=== PATIENT | male | born 1950 | race American Indian/Alaskan Native ===

== ENCOUNTER 2018-10-28 05:35 | Emergency (ER) | payer MEDICARE ==
--- NOTE | 2018-10-28 06:35 | Emergency Department Report ---
ED Psych HPI - General Chief Complaint: Psych Stated Complaint: MH/AMS Time Seen by Provider: 10/28/18 06:03 Source: EMS Mode of arrival: Stretcher - History of Present Illness Initial Comments: 68-year-old male with history of schizophrenia presents to the ED for psychiatric evaluation. Staci states that daughter reports patient has been taking his medications, however, patient has been agitated. States he has been playing with a wood boring machine operator inside the home, and daughter is concerned because she has young children at home. Daughter also reported that patient had some layers of clothing, and she has been trying to get him to take them off for 2 days, however patient refuses. Patient appears to be responding to internal stimuli, does not answer any of my questions. MD Complaint: other (needs mental health evaluation) -: unknown Quality: constant Improves With: none Worsens With: none Treatments Prior to Arrival: none - Related Data Previous Rx's Medication Instructions Recorded Last Taken Type Benztropine [Cogentin] 1 mg PO BID #30 tablet 11/08/17 Unknown Rx Mirtazapine [Remeron] 30 mg PO QHS #30 tablet 11/08/17 Unknown Rx hydrOXYzine pamoate [hydrOXYzine 150 mg PO QHS #30 capsule 11/08/17 Unknown Rx Pamoate] risperiDONE [RisperiDONE] 3 mg PO QHS #30 tablet 11/08/17 Unknown Rx Allergies Allergy/AdvReac Type Severity Reaction Status Date / Time No Known Allergies Allergy Unverified 10/28/18 06:00 ED Review of Systems ROS: Stated complaint: MH/AMS Other details as noted in HPI Comment: Unobtainable due to pts medical conditions (pt uncooperative with exam, does not answer any questions) ED Past Medical Hx - Past Medical History Previous Medical History?: Yes Hx Hypertension: Yes Hx CVA: Yes Hx Psychiatric Treatment: Yes (schizophrenia) Hx Asthma: Yes Hx HIV: No Additional medical history: cocaine use - Surgical History Past Surgical History?: No - Social History Smoking Status: Current Every Day Smoker - Medications Home Medications: Home Medications Medication Instructions Recorded Confirmed Last Taken Type Benztropine [Cogentin] 1 mg PO BID #30 tablet 11/08/17 Unknown Rx Mirtazapine [Remeron] 30 mg PO QHS #30 tablet 11/08/17 Unknown Rx hydrOXYzine pamoate [hydrOXYzine 150 mg PO QHS #30 capsule 11/08/17 Unknown Rx Pamoate] risperiDONE [RisperiDONE] 3 mg PO QHS #30 tablet 11/08/17 Unknown Rx ED Physical Exam - General Limitations: Altered Mental Status General appearance: alert, in no apparent distress - Head Head exam: Present: atraumatic, normocephalic - Eye Eye exam: Present: normal appearance - ENT ENT exam: Present: mucous membranes moist - Neck Neck exam: Present: normal inspection - Respiratory Respiratory exam: Present: normal lung sounds bilaterally. Absent: respiratory distress - Cardiovascular Cardiovascular Exam: Present: regular rate, normal rhythm - GI/Abdominal GI/Abdominal exam: Present: soft. Absent: distended, tenderness - Extremities Exam Extremities exam: Present: normal inspection - Neurological Exam Neurological exam: Present: alert - Psychiatric Psychiatric exam: Present: other (pt appears to be responding to internal stimuli; not answering any questions; whispering to himself) ED Course Vital Signs 10/28/18 10/28/18 10/28/18 05:55 08:17 09:30 Temperature 98.4 F 98.4 F 97.8 F Pulse Rate 92 H 76 77 Respiratory 18 16 19 Rate Blood Pressure 148/69 Blood Pressure 131/78 130/82 [Left] O2 Sat by Pulse 98 96 99 Oximetry 10/28/18 10/28/18 10/28/18 10:30 11:30 12:30 Temperature 98.3 F 98.1 F 98.1 F Pulse Rate 72 68 76 Respiratory 15 19 13 Rate Blood Pressure Blood Pressure 130/80 128/77 132/81 [Left] O2 Sat by Pulse 97 99 98 Oximetry ED Medical Decision Making - Lab Data Result diagrams: 10/28/18 06:07 10/28/18 06:07 - Medical Decision Making 68-year-old male sent to ER by daughter from home. Patient has history of schizophrenia, currently appears to be psychotic, responding to internal stimuli. Patient placed on 1013 and mental health evaluation ordered. Will dispo per psych. - Differential Diagnosis psychosis, schizophrenia Critical care attestation.: If time is entered above; I have spent that time in minutes in the direct care of this critically ill patient, excluding procedure time. ED Disposition Clinical Impression: Medical clearance for psychiatric admission, Schizophrenia Disposition: DC/TX-65 PSY HOSP/PSY UNIT Is pt being admited?: No Condition: Stable Referrals: PRIMARY CARE, [Primary Care Provider] - 3-5 Days
[2018-10-28 06:41] LABS: Hemoglobin 14.7 gm/dl (11.8-15.2); Mean Corpuscular HGB Conc 33 % (32-34); Mean Corpuscular Volume 84 fl (84-94); Platelet Count 423 K/mm3 (140-440); Red Blood Count 5.36 M/mm3 (3.65-5.03)
[2018-10-28 06:55] LABS: BUN/Creatinine Ratio 16; Blood Urea Nitrogen 16 mg/dL (9-20); Calcium 9.3 mg/dL (8.4-10.2); Hemolysis Index 6
[2018-10-28 11:51] LABS: Eosinophils % (Manual) 0 % (0.0-4.3); Platelet Estimate Consistent w Auto; RBC Morphology Normal; Total Cells Counted 100
[2018-10-28 12:39] VITALS: BP 132/81
== END 2018-10-28 12:30 ==
LOC: ED 05:35
DX: F20.9 Schizophrenia, unspecified (principal); I10 Essential (primary) hypertension; J45.909 Unspecified asthma, uncomplicated; F14.90 Cocaine use, unspecified, uncomplicated; F17.200 Nicotine dependence, unspecified, uncomplicated; Z86.73 Personal history of transient ischemic attack (TIA), and cerebral infarction without residual deficits
CPT/HCPCS: 36415; 80048; 85007; 85025; 99285; G0480; 80320

== ENCOUNTER 2019-05-01 23:41 | Inpatient (IN) | payer MEDICARE ==
[2019-05-02] MEDS ORDERED: NACL 0.9% 1000 ML 1,000 ML IV ONE (00:02)
[2019-05-02 00:27] LABS: Basophils # (Auto) 0.1 K/mm3 (0.0-0.1); Basophils % (Auto) 1.3 % (0.0-1.8); Eosinophils # (Auto) 0.1 K/mm3 (0.0-0.4); Eosinophils % (Auto) 0.9 % (0.0-4.3); Hematocrit 45.2 % (35.5-45.6); Hemoglobin 14.9 gm/dl (11.8-15.2); Lymphocytes # (Auto) 1.8 K/mm3 (1.2-5.4); Lymphocytes % (Auto) 28.9 % (13.4-35.0); Mean Corpuscular HGB Conc 33 % (32-34); Mean Corpuscular Volume 87 fl (84-94); Monocytes # (Auto) 0.4 K/mm3 (0.0-0.8); Monocytes % (Auto) 6.1 % (0.0-7.3); Platelet Count 366 K/mm3 (140-440); Red Blood Count 5.23 M/mm3 (3.65-5.03); Red Cell Distribution Width 14.5 % (13.2-15.2)
[2019-05-02 01:28] LABS: Alanine Aminotransferase 14 units/L (7-56); Albumin 4.3 g/dL (3.9-5); BUN/Creatinine Ratio 13; Blood Urea Nitrogen 13 mg/dL (9-20); Hemolysis Index 26
--- NOTE | 2019-05-02 02:31 | Cat Scan Report ---
CT head/brain wo con INDICATION / CLINICAL INFORMATION: ams. TECHNIQUE: All CT scans at this location are performed using CT dose reduction for ALARA by means of automated e xposure control. COMPARISON: 11/05/2017 FINDINGS: This study was limited technically, coronal and sagittal projections could not be provided. No intracranial hemorrhage or abnormal extra-axial fluid collection. The ventricular system and basilar cisterns are normal No findings suggesting large territorial infarction or evidence of mass effect. The visualized paranasal sinuses are clear. No osseous abnormality. IMPRESSION: 1. Negative nonenhanced head CT, no interval change. Signer Name: Wilmar Krishna MD Signed: 05/02/2019 2:26 AM Workstation Name: [id number]
[2019-05-02] MEDS ORDERED: RisperDAL PO ONE (04:45)
--- NOTE | 2019-05-02 04:45 | Emergency Department Report ---
ED Psych HPI - General Chief Complaint: Psych Stated Complaint: OFF MEDS Time Seen by Provider: 05/01/19 23:58 Source: EMS Mode of arrival: Stretcher Limitations: Altered Mental Status - History of Present Illness Initial Comments: 69-year-old -[place] male with a history of schizophrenia, brought to ED with delusions, hallucinations, visual and auditory. Patient has been without his psychiatric medications. MD Complaint: altered mental status -: Gradual - Related Data Previous Rx's Medication Instructions Recorded Last Taken Type Mirtazapine [Remeron] 30 mg PO QHS #30 tablet 11/08/17 Unknown Rx hydrOXYzine pamoate [hydrOXYzine 150 mg PO QHS #30 capsule 11/08/17 Unknown Rx Pamoate] risperiDONE [RisperiDONE] 3 mg PO QHS #30 tablet 11/08/17 Unknown Rx Allergies Allergy/AdvReac Type Severity Reaction Status Date / Time No Known Allergies Allergy Unverified 10/28/18 06:00 ED Review of Systems ROS: Stated complaint: OFF MEDS Other details as noted in HPI Comment: All other systems reviewed and negative Constitutional: denies: see HPI Eyes: denies: eye pain Genitourinary: denies: urgency Skin: denies: rash, lesions Neurological: denies: headache Psychiatric: auditory hallucinations, visual hallucinations ED Past Medical Hx - Past Medical History Previous Medical History?: Yes Hx Hypertension: Yes Hx CVA: Yes Hx Psychiatric Treatment: Yes (schizophrenia) Hx Asthma: Yes Hx HIV: No Additional medical history: cocaine use - Surgical History Past Surgical History?: No - Social History Smoking Status: Unknown if ever smoked Substance Use Type: Prescribed - Medications Home Medications: Home Medications Medication Instructions Recorded Confirmed Last Taken Type Mirtazapine [Remeron] 30 mg PO QHS #30 tablet 11/08/17 05/02/19 Unknown Rx hydrOXYzine pamoate [hydrOXYzine 150 mg PO QHS #30 capsule 11/08/17 05/02/19 Unknown Rx Pamoate] risperiDONE [RisperiDONE] 3 mg PO QHS #30 tablet 11/08/17 05/02/19 Unknown Rx ED Physical Exam - General Limitations: No Limitations, Altered Mental Status General appearance: anxious - Head Head exam: Present: atraumatic, normocephalic - Eye Eye exam: Present: normal appearance, PERRL, EOMI Pupils: Present: normal accommodation - ENT ENT exam: Present: normal exam, normal orophraynx - Neck Neck exam: Present: normal inspection - Respiratory Respiratory exam: Present: normal lung sounds bilaterally - Cardiovascular Cardiovascular Exam: Present: regular rate, normal rhythm - GI/Abdominal GI/Abdominal exam: Present: soft, normal bowel sounds - Psychiatric Psychiatric exam: Present: agitated, anxious ED Course Vital Signs 05/01/19 05/02/19 23:47 05:01 Temperature 98.5 F 98.5 F Pulse Rate 87 87 Respiratory 18 18 Rate Blood Pressure 148/100 Blood Pressure 148/100 [Right] O2 Sat by Pulse 95 95 Oximetry ED Medical Decision Making - Lab Data Result diagrams: 05/02/19 00:12 05/02/19 00:12 - Medical Decision Making Medically clear for psych placement Critical care attestation.: If time is entered above; I have spent that time in minutes in the direct care of this critically ill patient, excluding procedure time. ED Disposition Clinical Impression: Schizophrenia Qualifiers: Schizophrenia type: unspecified Qualified Code(s): F20.9 - Schizophrenia, unspecified Disposition: DC/TX-65 PSY HOSP/PSY UNIT Is pt being admited?: No Does the pt Need Aspirin: No Condition: Stable Referrals: JIN SHETH MD [Primary Care Provider] - 3-5 Days
[2019-05-02] MEDS ORDERED: KEPPRA 1,000 MG/NS 0.75% 100ML 1,000 MG/100 ML BAG IV ONE ×2 (07:14→07:15)
[2019-05-02] MEDS ORDERED: ATIVAN ONE (07:15)
[2019-05-02] MEDS ORDERED: VITAMIN B-1 100 MG, FOLVITE 1 MG, INFUVITE 10 ML in NACL 0.9% 1000 ML 1,000 ML IV ONE (08:00)
[2019-05-02 08:03] LABS: INR 1.39 (0.87-1.13); Partial Thromboplastin Time 24.3 Sec. (24.2-36.6)
[2019-05-02 08:12] LABS: Creatine Kinase MB 3.6 ng/mL (0.0-4.0)
--- NOTE | 2019-05-02 08:13 | Emergency Department Report ---
Blank Doc - Documentation Documentation: 69-year-old male previously seen by prior emergency physician. On my examinati on initially the patient does appear to have dementia and probably chronic schizophrenia. He is not agitated. He was cooperative. He was neurologically intact. However, some less than 60 minutes later the patient had a generalized seizure which I witnessed. He was given Keppra. He was reexamined. He had returned to his baseline. He was neurologically intact. He did not seem to be withdrawing from alcohol. I discussed his case with the mental health counselor. He is not seeming to meet 1013 criteria to me. Apparently he has been noncompliant with his psychiatric medication per his daughter. This should apparently be reinitiated. He states his never had a seizure before. He again does not seem to be withdrawing from alcohol. He was given a gram of Keppra. Patient has been CTU at approximately 2 AM. He had a normal CT. He said one prior normal CT as well within a year or so. I do not think it is necessary to reach CTU this patient at this time since she is returned to his baseline. Discussed with hospitalist. The patient will be admitted to the hospital service. He is entirely cooperative since my encounter.
[2019-05-02] MEDS ORDERED: ASPIRIN PO ONE (08:14)
[2019-05-02 08:29] LABS: Bacteria,Urine 1+ /HPF (Negative); Bilirubin,Urine NEG (Negative); Blood,Urine NEG (Negative); Color,Urine Yellow (Yellow); Mucus,Urine 1+ /HPF
[2019-05-02 08:36] LABS: Amphetamine Screen,Urine PRESUMPTIVE NEGATIVE; Benzodiazepines Screen,Urine PRESUMPTIVE NEGATIVE; Cannabinoid Screen,Urine PRESUMPTIVE NEGATIVE; Cocaine Screen,Urine PRESUMPTIVE NEGATIVE; Methadone Screen,Urine PRESUMPTIVE NEGATIVE; Opiate Screen,Urine PRESUMPTIVE NEGATIVE
--- NOTE | 2019-05-02 08:53 | XRay Report ---
CHEST 1 VIEW INDICATION / CLINICAL INFORMATION: hypertension. COMPARISON: None available. FINDINGS: SUPPORT DEVICES: None. HEART / MEDIASTINUM: No significant abnormality. LUNGS / PLEURA: No significant pulmonary or pleural abnormality. No pneumothorax. ADDITIONAL FINDINGS: No significant additional findings. IMPRESSION: 1. No acute findings. Signer Name: Santo Perez MD Signed: 05/02/2019 8:49 AM Workstation Name: [id number]
--- NOTE | 2019-05-02 10:08 | History and Physical Report ---
History of Present Illness Date of examination: 05/02/19 Date of admission: 05/02/19 08:13 Chief complaint: seizure History of present illness: 69-year-old -[place]aur[place] male with a history of schizophrenia, brought to ED with delusions, hallucinations, visual and auditory. Patient has been without his psychiatric medications. However, some less than 60 minutes later the patient had a generalized witnessed seizure in the ER. He was given Keppra. He was then called for admission to hospitalist service for further Mx. No family at bedside and no further details available at this time. Past History Past Medical History: hypertension, stroke Past Surgical History: Other (unknown) Social history: lives with family, other (cocaine abuse) Family history: other (unknown) Medications and Allergies Allergies Allergy/AdvReac Type Severity Reaction Status Date / Time No Known Allergies Allergy Unverified 10/28/18 06:00 Home Medications Medication Instructions Recorded Confirmed Last Taken Type Mirtazapine [Remeron] 30 mg PO QHS #30 tablet 11/08/17 05/02/19 Unknown Rx hydrOXYzine pamoate [hydrOXYzine 150 mg PO QHS #30 capsule 11/08/17 05/02/19 Unknown Rx Pamoate] risperiDONE [RisperiDONE] 3 mg PO QHS #30 tablet 11/08/17 05/02/19 Unknown Rx Active Meds: Active Medications Thiamine HCl 100 mg/ Folic Acid 1 mg/ Multivitamins/Minerals 10 ml/ Sodium Chloride 1,011.2 mls @ 250 mls/hr IV ONCE.ED ONE Stop: 05/02/19 12:02 Last Admin: 05/02/19 08:24 Dose: 250 mls/hr Documented by: Review of Systems ROS unobtainable: due to mental status Exam - Constitutional Vitals: Temp Pulse Resp BP Pulse Ox 98.1 F 78 22 99/43 99 05/02/19 08:04 05/02/19 08:04 05/02/19 08:04 05/02/19 08:04 05/02/19 08:04 General appearance: Present: well-nourished, other (confused) - EENT Eyes: Present: PERRL ENT: hearing intact, clear oral mucosa - Neck Neck: Present: supple, normal ROM - Respiratory Respiratory effort: normal Respiratory: bilateral: CTA - Cardiovascular Heart Sounds: Present: S1 & S2. Absent: rub, click - Extremities Extremities: pulses symmetrical, No edema Peripheral Pulses: within normal limits - Abdominal General gastrointestinal: Present: soft, non-tender, non-distended, normal bowel sounds - Integumentary Integumentary: Present: clear, warm, dry - Musculoskeletal Musculoskeletal: gait normal, strength equal bilaterally - Psychiatric Psychiatric: appropriate mood/affect, intact judgment & insight - Neurologic Neurologic: CNII-XII intact, moves all extremities Results - Labs CBC & Chem 7: 05/02/19 00:12 05/02/19 00:12 Labs: Abnormal lab results 05/02/19 05/02/19 05/02/19 Range/Units 00:12 00:12 00:12 RBC 5.23 H (3.65-5.03) M/mm3 PT (12.2-14.9) Sec. INR (0.87-1.13) Chloride 109.1 H (98-107) mmol/L Carbon Dioxide 21 L (22-30) mmol/L Glucose 127 H (75-100) mg/dL Ammonia (25-60) umol/L Total Creatine Kinase (55-170) units/L Salicylates < 0.3 L (2.8-20.0) mg/dL Acetaminophen (10.0-30.0) ug/mL 05/02/19 05/02/19 05/02/19 Range/Units 00:12 07:33 07:33 RBC (3.65-5.03) M/mm3 PT 16.7 H (12.2-14.9) Sec. INR 1.39 H (0.87-1.13) Chloride (98-107) mmol/L Carbon Dioxide (22-30) mmol/L Glucose (75-100) mg/dL Ammonia (25-60) umol/L Total Creatine Kinase 392 H (55-170) units/L Salicylates (2.8-20.0) mg/dL Acetaminophen < 5.0 L (10.0-30.0) ug/mL 05/02/19 Range/Units 07:33 RBC (3.65-5.03) M/mm3 PT (12.2-14.9) Sec. INR (0.87-1.13) Chloride (98-107) mmol/L Carbon Dioxide (22-30) mmol/L Glucose (75-100) mg/dL Ammonia 223.0 H (25-60) umol/L Total Creatine Kinase (55-170) units/L Salicylates (2.8-20.0) mg/dL Acetaminophen (10.0-30.0) ug/mL - Imaging and Cardiology Chest x-ray: report reviewed CT Scan - head: report reviewed Assessment and Plan Acute seizure Acute metabolic encephalopathy Schizophrenia hyperammonimenia Rhabdomyolysis caocaine abuse h/o h/o old CVA - admit to [facility] - as needed ativan for seizure, s/p one dose iv keppra - has no h/o seizure, CT head negtaive - resume home meds, psych consult - consult neurology about AED meds recommendation - place on iv fluid and lactulose - monitor ammonia and CPK level - obtain UDS, monitor BP - DVt Px, mechanical soft diet
[2019-05-02] MEDS ORDERED: ATIVAN IV PRN (10:22)
[2019-05-02] MEDS ORDERED: APRESOLINE IV PRN (10:23)
[2019-05-02] MEDS ORDERED: NORCO 5/325 PO PRN (10:23)
[2019-05-02] MEDS ORDERED: TYLENOL PO PRN (10:23)
[2019-05-02] MEDS ORDERED: ZOFRAN IV PRN (10:23)
[2019-05-02] MEDS ORDERED: CEPHULAC PO SCH (16:00)
--- NOTE | 2019-05-02 18:51 | Consultation ---
History of Present Illness - Reason for Consult Consult date: 05/02/19 Reason for consult: psychiatric evaluation - Chief Complaint Chief complaint: "I ain't gonna say something." - History of Present Psychiatric Illness 69-year-old -[place] male with a history of schizophrenia, brought to ED with delusions, hallucinations, visual and auditory. Patient has been without his psychiatric medications. However, some less than 60 minutes later the patient had a generalized witnessed seizure. He was given Keppra. He repeatedly says, "I ain't gonna say something." He states he takes 5 pills at night and one in the morning. He intermittently grabs his head and winces. He says, "I drank a beer and a water." Unable to gather additional information due to disorganized thought process. Medications and Allergies Allergies Allergy/AdvReac Type Severity Reaction Status Date / Time No Known Allergies Allergy Unverified 10/28/18 06:00 Home Medications Medication Instructions Recorded Confirmed Last Taken Type Mirtazapine [Remeron] 30 mg PO QHS #30 tablet 11/08/17 05/02/19 Unknown Rx hydrOXYzine pamoate [hydrOXYzine 150 mg PO QHS #30 capsule 11/08/17 05/02/19 Unknown Rx Pamoate] risperiDONE [RisperiDONE] 3 mg PO QHS #30 tablet 11/08/17 05/02/19 Unknown Rx Active Meds: Active Medications Acetaminophen (Tylenol) 650 mg PO Q4H PRN PRN Reason: Pain MILD(1-3)/Fever >100.5/[place] Acetaminophen/Hydrocodone Bitart ([place] 5/325) 2 each PO Q6H PRN PRN Reason: Pain, Moderate (4-6) Docusate Sodium (Colace) 100 mg PO BID [place] Enoxaparin Sodium (Lovenox) 40 mg SUB-Q QDAY@2200 [place] Famotidine (Pepcid) 10 mg PO BID [place] Hydralazine HCl (Apresoline) 5 mg IV Q30MIN PRN PRN Reason: Hypertension Hydroxyzine Pamoate (Vistaril) 150 mg PO QHS [place] Sodium Chloride (Nacl 0.9% 1000 Ml) 1,000 mls @ 100 mls/hr IV DIRECT [place] Lactulose (Cephulac) 20 gm PO Q6HR [place] Lorazepam (Ativan) 2 mg IV Q4H PRN PRN Reason: Agitation Mirtazapine (Remeron) 30 mg PO QHS [facility] Ondansetron HCl (Zofran) 4 mg IV Q8H PRN PRN Reason: N/V unrelieved by Reglan Risperidone (Risperdal) 3 mg PO QHS [facility] Mental Status Exam - Vital signs Last Vital Signs Temp 98.1 F 05/02/19 10:44 Pulse 62 05/02/19 10:44 Resp 18 05/02/19 10:44 BP 133/67 05/02/19 10:44 Pulse Ox 98 05/02/19 10:44 - Exam Narrative exam: he would turn his face away intermittently Orientation: person Affect: flat Mood: calm Thought content: paranoia Thought Process: Disorganized, Disoriented Perceptions: other (unable to assess) Speech: minimal response Concentration: distractible Motor activity: other (occasional involuntary movements of tongue ) Level of consciousness: confused Interaction: uncooperative (minimally cooperative) Results Result Diagrams: 05/02/19 00:12 05/02/19 00:12 Abnormal lab results 05/02/19 05/02/19 05/02/19 Range/Units 00:12 00:12 00:12 RBC 5.23 H (3.65-5.03) M/mm3 PT (12.2-14.9) Sec. INR (0.87-1.13) Chloride 109.1 H (98-107) mmol/L Carbon Dioxide 21 L (22-30) mmol/L Glucose 127 H (75-100) mg/dL Ammonia (25-60) umol/L Total Creatine Kinase (55-170) units/L Salicylates < 0.3 L (2.8-20.0) mg/dL Acetaminophen (10.0-30.0) ug/mL 05/02/19 05/02/19 05/02/19 Range/Units 00:12 07:33 07:33 RBC (3.65-5.03) M/mm3 PT 16.7 H (12.2-14.9) Sec. INR 1.39 H (0.87-1.13) Chloride (98-107) mmol/L Carbon Dioxide (22-30) mmol/L Glucose (75-100) mg/dL Ammonia (25-60) umol/L Total Creatine Kinase 392 H (55-170) units/L Salicylates (2.8-20.0) mg/dL Acetaminophen < 5.0 L (10.0-30.0) ug/mL 05/02/19 Range/Units 07:33 RBC (3.65-5.03) M/mm3 PT (12.2-14.9) Sec. INR (0.87-1.13) Chloride (98-107) mmol/L Carbon Dioxide (22-30) mmol/L Glucose (75-100) mg/dL Ammonia 223.0 H (25-60) umol/L Total Creatine Kinase (55-170) units/L Salicylates (2.8-20.0) mg/dL Acetaminophen (10.0-30.0) ug/mL All other labs normal. Assessment and Plan Assessment and plan: Impression: schizophrenia by history witnessed seizure activity acute metabolic encephalopathy, ammonia 223 possible tardive dyskinesia. This will need to be addressed by movement disorder specialist or outpatient psychiatrist who could prescribe and obtain meds indicated for td, [place] or Ingrezza recommendation: continue medical treatment Psych will monitor mental status daily meds ordered by hospitalist: risperdal 3mg hs (monitor ck, currently 392) vistaril (dose decreased by psychiatry; 50mg hs and will consider discontinuing due to anticholinergic effects in elderly) remeron 30mg hs dispo: will determine once medically cleared staffed with Dr. Chan
[2019-05-02] MEDS: CEPHULAC PO SCH ×2 (18:57→23:45)
[2019-05-02] MEDS: NACL 0.9% 1000 ML 1,000 ML IV SCH (18:57)
--- NOTE | 2019-05-02 19:29 | Progress Note ---
Subjective Date of service: 05/02/19 Interval history: new onset of generalized seizure the CT shows no stroke or [employer] lesion the brain has slight frontal atrophy present rec anticonvulsant meds as outlined and get EEG Thanks Objective - Vital Sign Vital Signs - 12hr 05/02/19 05/02/19 05/02/19 07:30 07:41 07:51 Temperature Pulse Rate 75 82 Respiratory 22 14 Rate Blood Pressure 94/51 99/43 94/51 Blood Pressure [Right] O2 Sat by Pulse 99 99 Oximetry 05/02/19 05/02/19 05/02/19 08:00 08:04 08:11 Temperature 98.1 F Pulse Rate 84 78 72 Respiratory 26 H 22 24 Rate Blood Pressure 117/73 99/43 Blood Pressure 99/43 [Right] O2 Sat by Pulse 99 99 100 Oximetry 05/02/19 05/02/19 05/02/19 08:21 08:31 08:41 Temperature Pulse Rate 67 64 63 Respiratory 16 11 L 13 Rate Blood Pressure 99/43 99/43 99/43 Blood Pressure [Right] O2 Sat by Pulse 99 98 100 Oximetry 05/02/19 05/02/19 05/02/19 08:51 09:00 09:11 Temperature Pulse Rate 56 L 54 L 51 L Respiratory 22 21 21 Rate Blood Pressure 99/43 113/74 117/73 Blood Pressure [Right] O2 Sat by Pulse 99 99 99 Oximetry 05/02/19 05/02/19 05/02/19 09:21 09:31 09:34 Temperature Pulse Rate 70 75 Respiratory 21 13 20 Rate Blood Pressure 117/73 117/73 Blood Pressure [Right] O2 Sat by Pulse 100 100 Oximetry 05/02/19 05/02/19 05/02/19 09:41 09:51 10:00 Temperature Pulse Rate 72 83 63 Respiratory 18 13 20 Rate Blood Pressure 117/73 117/73 182/96 Blood Pressure [Right] O2 Sat by Pulse 100 100 99 Oximetry 05/02/19 05/02/19 10:11 10:44 Temperature 98.1 F Pulse Rate 60 62 Respiratory 21 18 Rate Blood Pressure 113/74 133/67 Blood Pressure [Right] O2 Sat by Pulse 100 98 Oximetry - Laboratory Findings CBC and BMP: 05/02/19 00:12 05/02/19 00:12 Abnormal Lab Findings: Abnormal Labs 05/02/19 05/02/19 05/02/19 00:12 00:12 00:12 RBC 5.23 H PT INR Chloride 109.1 H Carbon Dioxide 21 L Glucose 127 H Ammonia Total Creatine Kinase Salicylates < 0.3 L Acetaminophen 05/02/19 05/02/19 05/02/19 00:12 07:33 07:33 RBC PT 16.7 H INR 1.39 H Chloride Carbon Dioxide Glucose Ammonia Total Creatine Kinase 392 H Salicylates Acetaminophen < 5.0 L 05/02/19 07:33 RBC PT INR Chloride Carbon Dioxide Glucose Ammonia 223.0 H Total Creatine Kinase Salicylates Acetaminophen
[2019-05-02] MEDS: PEPCID PO SCH (22:00)
[2019-05-02] MEDS ORDERED: VISTARIL PO SCH (22:00)
[2019-05-02] MEDS: VISTARIL PO SCH (22:00)
[2019-05-02] MEDS: REMERON PO SCH (22:00)
[2019-05-02] MEDS: LOVENOX SUB-Q SCH (22:01)
[2019-05-02] MEDS: COLACE PO SCH (22:01)
[2019-05-02] MEDS: RisperDAL PO SCH (22:01)
[2019-05-03] MEDS: CEPHULAC PO SCH ×2 (05:21→12:29)
--- NOTE | 2019-05-03 07:24 | Progress Note ---
Subjective Date of service: 05/03/19 Interval history: at this point seizure free but talking pure gibberish related to schizo. state... he is cooperative and has no focal findinds await EEG saturday Objective - Vital Sign Vital Signs - 12hr 05/02/19 05/02/19 05/02/19 20:11 20:28 21:34 Temperature 97.5 F L Pulse Rate 54 L 54 L Respiratory 18 18 Rate Blood Pressure 151/95 O2 Sat by Pulse 100 Oximetry 05/03/19 02:34 Temperature 98.5 F Pulse Rate 55 L Respiratory 18 Rate Blood Pressure 141/95 O2 Sat by Pulse 98 Oximetry - Laboratory Findings CBC and BMP: 05/02/19 00:12 05/02/19 00:12 Abnormal Lab Findings: Abnormal Labs 05/02/19 05/02/19 05/02/19 00:12 00:12 00:12 RBC 5.23 H PT INR Chloride 109.1 H Carbon Dioxide 21 L Glucose 127 H Ammonia Total Creatine Kinase Salicylates < 0.3 L Acetaminophen 05/02/19 05/02/19 05/02/19 00:12 07:33 07:33 RBC PT 16.7 H INR 1.39 H Chloride Carbon Dioxide Glucose Ammonia Total Creatine Kinase 392 H Salicylates Acetaminophen < 5.0 L 05/02/19 07:33 RBC PT INR Chloride Carbon Dioxide Glucose Ammonia 223.0 H Total Creatine Kinase Salicylates Acetaminophen
--- NOTE | 2019-05-03 11:26 | Progress Note ---
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 Medical records and medication list reviewed. No acute event overnight noted by the RN. Patient denies any chest pain or difficulty breathing. Patient is tolerating diet. He appears to be pleasantly confused and oriented to self only Discussed plan of care at bedside with patient. Objective - Exam Narrative Exam: General appearance: Present: well-nourished, other (confused) - EENT Eyes: Present: PERRL ENT: hearing intact, clear oral mucosa - Neck Neck: Present: supple, normal ROM - Respiratory Respiratory effort: normal Respiratory: bilateral: CTA - Cardiovascular Heart Sounds: Present: S1 & S2. Absent: rub, click - Extremities Extremities: pulses symmetrical, No edema Peripheral Pulses: within normal limits - Abdominal General gastrointestinal: Present: soft, non-tender, non-distended, normal bowel sounds - Integumentary Integumentary: Present: clear, warm, dry - Musculoskeletal Musculoskeletal: gait normal, strength equal bilaterally - Psychiatric Psychiatric: no appropriate mood/affect, no intact judgment & insight - Neurologic Neurologic: CNII-XII intact, moves all extremities - Constitutional Vitals: Vital Signs - 12hr 05/03/19 05/03/19 05/03/19 02:34 07:20 08:05 Temperature 98.5 F 98.1 F Pulse Rate 55 L 59 L Respiratory 18 18 18 Rate Blood Pressure 141/95 168/86 O2 Sat by Pulse 98 98 Oximetry - Labs CBC & Chem 7: 05/02/19 00:12 05/04/19 09:24
[2019-05-03] MEDS: KEPPRA 500 MG in D5W 100 ML IV SCH ×2 (12:12→22:38)
[2019-05-03] MEDS: PEPCID PO SCH ×2 (12:13→22:39)
[2019-05-03] MEDS: COLACE PO SCH ×2 (12:29→22:39)
--- NOTE | 2019-05-03 19:16 | Progress Note ---
Subjective - Reason for Consult Consult date: 05/03/19 Reason for consult: follow up - Chief Complaint Chief complaint: "I'm getting old." He says he is doing "bad." He participated in interview and discussed his need to find a new place to live. He says his daughter does not want him there. He reports chronic feelings that somebody is watching him. "I handle it." He denies SI/HI and denies command hallucinations. He denies difficulty with sleep or appetite. He reports a history of CVA and CO 7 years ago Mental Status Exam - Vital signs Last Vital Signs Temp 97.9 F 05/03/19 14:54 Pulse 59 L 05/03/19 14:54 Resp 18 05/03/19 14:54 BP 115/66 05/03/19 14:54 Pulse Ox 94 05/03/19 14:54 - Exam Narrative exam: Affect: flat Mood: calm Thought content: paranoia Thought Process: limited in scope Perceptions: paranoia, AVH-non command Speech: regular rate and rhythm Concentration: focused Motor activity: other (occasional involuntary movements of tongue ) Level of consciousness: alert and oriented x 3 Interaction: cooperative Assessment and Plan Impression: schizophrenia by history witnessed seizure activity acute metabolic encephalopathy, ammonia 223 r/o td continue medical treatment Psych will monitor mental status daily meds ordered by hospitalist: risperdal 3mg hs (monitor ck, currently 392) vistaril (dose decreased by psychiatry; 50mg hs and will consider discontinuing due to anticholinergic effects in elderly) remeron 30mg hs dispo: will determine once medically cleared staffed with Dr. Chan
[2019-05-03] MEDS: LOVENOX SUB-Q SCH (22:38)
[2019-05-03] MEDS: REMERON PO SCH (22:39)
[2019-05-03] MEDS: VISTARIL PO SCH (22:39)
[2019-05-03] MEDS: RisperDAL PO SCH (22:39)
[2019-05-04 07:59] VITALS: BP 122/69
[2019-05-04 10:03] LABS: BUN/Creatinine Ratio 8; Blood Urea Nitrogen 9 mg/dL (9-20); Calcium 8.7 mg/dL (8.4-10.2); Hemolysis Index 8
[2019-05-04] MEDS: COLACE PO SCH (10:16)
[2019-05-04] MEDS: PEPCID PO SCH (10:17)
[2019-05-04] MEDS: KEPPRA 500 MG in D5W 100 ML IV SCH (10:17)
[2019-05-04] MEDS: NACL 0.9% 1000 ML 1,000 ML IV SCH (10:24)
--- NOTE | 2019-05-04 13:52 | Progress Note ---
Subjective - Reason for Consult Consult date: 05/04/19 Reason for consult: Psychiatry Follow-up - Chief Complaint Chief complaint: "I'm doing okay" 69-year-old -Bul[place]ian male with a history of schizophrenia, brought to ED with delusions, hallucinations, visual and auditory. While in the ER the patient had a seizure and was admitted to the hospital. Today the patient was calm and cooperative during the assessment. He stated that he reside with his daughter Sammie. During the interview, the patient was eating his lunch without assistance. He stated that the he will follow up with is psychiatrist when discharged. He denies SI/HI's and AVH's. No indications of side effects if hie medications. Mental Status Exam - Vital signs Last Vital Signs Temp 98.0 F 05/04/19 07:22 Pulse 45 L 05/04/19 07:22 Resp 20 05/04/19 07:22 BP 122/69 05/04/19 07:22 Pulse Ox 97 05/04/19 07:22 - Exam Narrative exam: MSE: Appearance: calm, cooperative Behavior: regular eye contact Speech: regular rate and tone Mood: "okay" Affect: congruent to mood Thought Process: circumstantial Thought Content: denies SI/HI's and AVH's Motor Activity: ambulatory Cognition: A/O x3 Insight: fair Judgment: fair Assessment and Plan Impression: Schizophrenia by history. Today t he patient was calm and cooperative during the assessment. Recommendation/Plan: Continue Remeron 30 mg PO HS, Vistaril 50 mg PO HS, and Risperdal 3 mg PO HS. Discussed possible metabolic side effects of Risperdal with the patient, he verbalized understanding. Discussed possible suicidality/medication induced ifeanyi with the patient reference Remeron, he verbalized understanding. Psy sign off. Dispo: The patient can follow up with [facility] for outpatient psy services. i Will staff with Dr.S Chan
--- NOTE | 2019-05-04 13:56 | Discharge Summary ---
Providers - Providers Date of Admission: 05/02/19 08:13 Date of discharge: 05/04/19 Attending physician: CLARISSA COWAN 05/02/19 01:54 Consult to Mental Health [CONS] Stat Reason For Exam: schizophrenia, psychosis acute Place consult to:: [place] Notified:: y 05/02/19 13:26 Consult to Physician [CONS] Routine Comment: STAR Consulting Provider: ETHEL CHO Physician Instructions: CONSULT WAS CALLED TO /TELLY Reason For Exam: acute seizure Primary care physician: [facility] Hospitalization Condition: Stable Disposition: DC-01 TO HOME OR SELFCARE Time spent for discharge: 34 minutes Exam - Constitutional Vitals: Temp Pulse Resp BP Pulse Ox 98.0 F 45 L 20 122/69 97 05/04/19 07:22 05/04/19 07:22 05/04/19 07:22 05/04/19 07:22 05/04/19 07:22 Plan Follow up with: JIN SHETH MD [Referring] - 3-5 Days
--- NOTE | 2019-05-04 13:58 | Progress Note ---
Assessment and Plan Acute seizure, placed on Keppra Acute metabolic encephalopathy, due to high ammonia Schizophrenia, stable, psych following hyperammonimenia, resolved with lactulose Rhabdomyolysis, CPK trending down caocaine abuse h/o h/o old CVA - admitted to [facility] - cont as needed ativan for seizure, cont iv keppra per neuro recommendation - has no h/o seizure, CT head negtaive - resumed home meds, psych consulted - placed on iv fluid and s/p lactulose - Continue to monitor ammonia and CPK level - Normal UDS, monitor BP - DVt Px, mechanical soft diet - medically stable, discharge when cleares by psych Brief history: 69-year-old -Polish male with a history of schizophrenia, brought to ED with delusions, hallucinations, visual and auditory. Patient has been without his psychiatric medications. However, some less than 60 minutes later the patient had a generalized witnessed seizure in the ER. He was given Keppra. He was then called for admission to hospitalist service for further Mx. Head CT - no acute finding CXR - no infiltrates Subjective Date of service: 05/04/19 Interval history: Patient seen and examined. Medical records and medication list reviewed. No acute event overnight noted by the RN. Patient denies any chest pain or difficulty breathing. Patient is tolerating diet. He appears to be pleasantly confused and oriented to self only Discussed plan of care at bedside with patient. Objective - Exam Narrative Exam: General appearance: Present: well-nourished, other (confused) - EENT Eyes: Present: PERRL ENT: hearing intact, clear oral mucosa - Neck Neck: Present: supple, normal ROM - Respiratory Respiratory effort: normal Respiratory: bilateral: CTA - Cardiovascular Heart Sounds: Present: S1 & S2. Absent: rub, click - Extremities Extremities: pulses symmetrical, No edema Peripheral Pulses: within normal limits - Abdominal General gastrointestinal: Present: soft, non-tender, non-distended, normal bowel sounds - Integumentary Integumentary: Present: clear, warm, dry - Musculoskeletal Musculoskeletal: gait normal, strength equal bilaterally - Psychiatric Psychiatric: no appropriate mood/affect, no intact judgment & insight - Neurologic Neurologic: CNII-XII intact, moves all extremities - Constitutional Vitals: Vital Signs - 12hr 05/04/19 05/04/19 02:14 07:22 Temperature 98.5 F 98.0 F Pulse Rate 49 L 45 L Respiratory 20 20 Rate Blood Pressure 126/75 122/69 O2 Sat by Pulse 96 97 Oximetry - Labs CBC & Chem 7: 05/02/19 00:12 05/04/19 09:24 Labs: Abnormal lab results 05/03/19 05/04/19 Range/Units 12:48 09:24 Glucose 114 H (75-100) mg/dL Total Creatine Kinase 339 H 188 H (55-170) units/L
--- NOTE | 2019-05-04 14:03 | Discharge Summary ---
Providers - Providers Date of Admission: 05/02/19 08:13 Date of discharge: 05/04/19 Attending physician: CLARISSA COWAN 05/02/19 01:54 Consult to Mental Health [CONS] Stat Reason For Exam: schizophrenia, psychosis acute Place consult to:: [facility] Notified:: y 05/02/19 13:26 Consult to Physician [CONS] Routine Comment: STAR Consulting Provider: ETHEL CHO Physician Instructions: CONSULT WAS CALLED TO /TELLY Reason For Exam: acute seizure Primary care physician: [facility], [facility] Hospitalization Condition: Stable Pertinent studies: Head CT - no acute finding CXR - no infiltrates Hospital course: 69-year-old -Maltese male with a history of schizophrenia, brought to ED with delusions, hallucinations, visual and auditory. Patient has been without his psychiatric medications. However, some less than 60 minutes later the patient had a generalized witnessed seizure in the ER. He was given Keppra. He was then called for admission to hospitalist service for further Mx. - admitted to [facility] - Placed on as needed ativan for seizure, and iv keppra per neuro recommendation - changed to po on discharge - has no h/o seizure, CT head negtaive - resumed home meds, psych consulted - placed on iv fluid and s/p lactulose for high ammonia level - Monitored ammonia and CPK level - Normal UDS, mental status was then at baseline - was discharged home with daughter in stable condition Discharge diagnosis: Acute seizure, placed on Keppra Acute metabolic encephalopathy, due to high ammonia, resolved Schizophrenia, stable, psych following hyperammonimenia, resolved with lactulose Rhabdomyolysis, CPK trended down caocaine abuse h/o h/o old CVA Disposition: DC-01 TO HOME OR SELFCARE Time spent for discharge: 34 minutes Core Measure Documentation - Palliative Care Palliative Care/ Comfort Measures: Not Applicable - Core Measures Any of the following diagnoses?: none Exam - Physical Exam Narrative exam: General appearance: Present: well-nourished, other (confused) - EENT Eyes: Present: PERRL ENT: hearing intact, clear oral mucosa - Neck Neck: Present: supple, normal ROM - Respiratory Respiratory effort: normal Respiratory: bilateral: CTA - Cardiovascular Heart Sounds: Present: S1 & S2. Absent: rub, click - Extremities Extremities: pulses symmetrical, No edema Peripheral Pulses: within normal limits - Abdominal General gastrointestinal: Present: soft, non-tender, non-distended, normal bowel sounds - Integumentary Integumentary: Present: clear, warm, dry - Musculoskeletal Musculoskeletal: gait normal, strength equal bilaterally - Psychiatric Psychiatric: no appropriate mood/affect, no intact judgment & insight - Neurologic Neurologic: CNII-XII intact, moves all extremities - Constitutional Vitals: Temp Pulse Resp BP Pulse Ox 98.0 F 45 L 20 122/69 97 05/04/19 07:22 05/04/19 07:22 05/04/19 07:22 05/04/19 07:22 05/04/19 07:22 Plan Activity: advance as tolerated Weight Bearing Status: Weight Bear as Tolerated Diet: advance as tolerated Follow up with: JIN SHETH MD [Referring] - 3-5 Days ETHEL DEWEY MD [Staff Physician] - 7 Days Prescriptions: levETIRAcetam [Keppra TAB] 750 mg PO BID #60 tablet
== END 2019-05-04 18:20 | disposition home or self-care (01) | DRG 100 ==
LOC: ED 23:41 → 2B-ACE 05-02 08:13
PROVIDERS: ADMIT Hospitalist; ATTEND Internal Medicine
DX: G40.89 Other seizures (principal); G93.41 Metabolic encephalopathy; E72.20 Disorder of urea cycle metabolism, unspecified; M62.82 Rhabdomyolysis; F20.9 Schizophrenia, unspecified; Z86.73 Personal history of transient ischemic attack (TIA), and cerebral infarction without residual deficits
CPT/HCPCS: 36415; 70450; 71045; 80048; 80053; 80307; 80320; 81001; 82140; 82550; 82553; 82962; 83735; 83880; 84443; 85025; 85610; 85730; 87116; 93005; 93010; 93306; 95819; 96361; 96365; 96367; G0378; G0480; J1650; J1953; J2060; J3411; J7030; Q0177

== ENCOUNTER 2019-05-16 15:04 | Emergency (ER) | payer MEDICARE ==
[2019-05-16 16:16] VITALS: BP 124/72
[2019-05-16 16:36] LABS: Hematocrit 44.9 % (35.5-45.6); Hemoglobin 14.7 gm/dl (11.8-15.2); Mean Corpuscular HGB Conc 33 % (32-34); Mean Corpuscular Volume 85 fl (84-94); Platelet Count 426 K/mm3 (140-440); Red Blood Count 5.26 M/mm3 (3.65-5.03); Red Cell Distribution Width 14.1 % (13.2-15.2)
--- NOTE | 2019-05-16 16:39 | Emergency Department Report ---
ED Alcohol HPI - General Chief Complaint: Alcohol Stated Complaint: ETOH Time Seen by Provider: 05/16/19 16:05 Source: patient, old records reviewed Mode of arrival: Stretcher Limitations: No Limitations - History of Present Illness Initial Comments: 69 yo male patient was seen [place] [address]. EMS was called. Patient states he got mad at a friend, left the house, and started walking. Patient states he was trying to get to the other side of town. EMS reports patient may be intoxicated. Patient states he has had several drinks today, but is unsure "what was in them." Patient has history of schizophrenia. Has no complaints. MD Complaint: alcohol intoxication Last Drink: unknown Associated Symptoms: denies other symptoms - Related Data Previous Rx's Medication Instructions Recorded Last Taken Type Mirtazapine [Remeron] 30 mg PO QHS #30 tablet 11/08/17 Unknown Rx risperiDONE [RisperiDONE] 3 mg PO QHS #30 tablet 11/08/17 Unknown Rx levETIRAcetam [Keppra TAB] 750 mg PO BID #60 tablet 05/04/19 Unknown Rx Allergies Allergy/AdvReac Type Severity Reaction Status Date / Time No Known Allergies Allergy Unverified 10/28/18 06:00 ED Review of Systems ROS: Stated complaint: ETOH Other details as noted in HPI Comment: All other systems reviewed and negative ED Past Medical Hx - Past Medical History Previous Medical History?: Yes Hx Hypertension: Yes Hx CVA: Yes Hx Psychiatric Treatment: Yes (schizophrenia) Hx Asthma: Yes Hx HIV: No Additional medical history: cocaine use - Social History Smoking Status: Current Every Day Smoker Substance Use Type: Alcohol, Cocaine, Heroin, Marijuana, Methamphetamines - Medications Home Medications: Home Medications Medication Instructions Recorded Confirmed Last Taken Type Mirtazapine [Remeron] 30 mg PO QHS #30 tablet 11/08/17 05/02/19 Unknown Rx risperiDONE [RisperiDONE] 3 mg PO QHS #30 tablet 11/08/17 05/02/19 Unknown Rx levETIRAcetam [Keppra TAB] 750 mg PO BID #60 tablet 05/04/19 Unknown Rx ED Physical Exam - General Limitations: No Limitations General appearance: alert, in no apparent distress - Head Head exam: Present: atraumatic, normocephalic - Eye Eye exam: Present: normal appearance - ENT ENT exam: Present: mucous membranes moist - Neck Neck exam: Present: normal inspection - Respiratory Respiratory exam: Present: normal lung sounds bilaterally. Absent: respiratory distress - Cardiovascular Cardiovascular Exam: Present: regular rate, normal rhythm - GI/Abdominal GI/Abdominal exam: Present: soft. Absent: distended, tenderness - Extremities Exam Extremities exam: Present: normal inspection - Neurological Exam Neurological exam: Present: alert, oriented X3 - Psychiatric Psychiatric exam: Present: normal affect, normal mood - Skin Skin exam: Present: warm, dry, intact, normal color ED Course Vital Signs 05/16/19 16:15 Temperature 97.8 F Pulse Rate 84 Blood Pressure 124/72 [Right] - Reevaluation(s) Reevaluation #1: 05/16/19 17:10 Alcohol level is zero. Spoke w/ pt's daughter, Cecy, over the phone. States she will come to ER to get him. Reevaluation #2: 05/16/19 18:00 Daughter at bedside. States patient is at baseline. She is ok with taking pt home. States he often leaves the house like this and wanders. ED Medical Decision Making - Lab Data Result diagrams: 05/16/19 16:25 05/16/19 16:25 - Differential Diagnosis intoxication, dementia, schizophrenia Critical care attestation.: If time is entered above; I have spent that time in minutes in the direct care of this critically ill patient, excluding procedure time. ED Disposition Clinical Impression: No problem, feared complaint unfounded, Schizophrenia Disposition: DC-01 TO HOME OR SELFCARE Is pt being admited?: No Condition: Stable Referrals: JIN SHETH MD [Primary Care Provider] - 3-5 Days Time of Disposition: 18:04
[2019-05-16 17:17] LABS: Calcium 9.5 mg/dL (8.4-10.2)
[2019-05-16 17:23] LABS: Band Neutrophils # (Manual) 0.1 K/mm3; Basophils % (Manual) 0 % (0.0-1.8); Eosinophils % (Manual) 0 % (0.0-4.3); Ovalocytes Few; Platelet Estimate Consistent w Auto; Total Cells Counted 100
== END 2019-05-16 18:00 | disposition home or self-care (01) ==
LOC: ED 15:04
DX: F20.9 Schizophrenia, unspecified (principal); I10 Essential (primary) hypertension; I63.9 Cerebral infarction, unspecified; J45.909 Unspecified asthma, uncomplicated; F17.200 Nicotine dependence, unspecified, uncomplicated; F14.10 Cocaine abuse, uncomplicated; F12.10 Cannabis abuse, uncomplicated; F15.10 Other stimulant abuse, uncomplicated; Z79.899 Other long term (current) drug therapy; Z71.1 Person with feared health complaint in whom no diagnosis is made
CPT/HCPCS: 36415; 80048; 80320; 85007; 85025; G0480

== ENCOUNTER 2019-06-27 02:06 | Emergency (ER) | payer MEDICARE ==
[2019-06-27] MEDS ORDERED: ATIVAN ONE (03:16)
[2019-06-27] MEDS ORDERED: KEPPRA 1,000 MG/NS 0.75% 100ML 1,000 MG/100 ML BAG IV ONE (03:17)
[2019-06-27] MEDS ORDERED: ATIVAN IV ONE (03:17)
[2019-06-27] MEDS ORDERED: BENADRYL IM PRN (03:27)
[2019-06-27] MEDS ORDERED: HALDOL IM PRN (03:27)
--- NOTE | 2019-06-27 03:27 | Emergency Department Report ---
HPI - HPI HPI: Room 16 --> 22 The patient is a 69-year-old male presenting with a chief complaint of schizophrenia. The patient was brought in by his daughter states that the patient has been off his medication for his schizophrenia and bipolar disorder. No further history was obtained. During the interview with the patient he appeared jovial. Mid sentence and had a generalized tonic-clonic seizure lasting approximately 30 seconds and then was postictal. The patient was moved to room 22 for further management. The patient has a history of seizure disorder and takes Keppra. The patient is currently postictal Location: [See above] Duration: [See above] Quality: [See above] Severity: [See above] Timing: [See above] Context: [See above] Modifying factors: [See above] Associated signs and symptoms: [see above] <RICH MILLER - Last Filed: 06/27/19 03:22> <ADRI CLARK - Last Filed: 06/28/19 13:17> - General Chief Complaint: Psych Time Seen by Provider: 06/27/19 03:09 ED Past Medical Hx - Past Medical History Previous Medical History?: Yes Hx Hypertension: Yes Hx CVA: Yes Hx Psychiatric Treatment: Yes (schizophrenia) Hx Asthma: Yes Additional medical history: cocaine use - Surgical History Past Surgical History?: No - Family History Family history: no significant - Social History Smoking Status: Current Every Day Smoker Substance Use Type: Alcohol <RICH MILLER - Last Filed: 06/27/19 03:22> <ADRI CLARK - Last Filed: 06/28/19 13:17> - Medications Home Medications: Home Medications Medication Instructions Recorded Confirmed Last Taken Type Mirtazapine [Remeron] 30 mg PO QHS #30 tablet 11/08/17 06/27/19 Unknown Rx risperiDONE [RisperiDONE] 3 mg PO QHS #30 tablet 11/08/17 06/27/19 Unknown Rx levETIRAcetam [Keppra TAB] 750 mg PO BID #60 tablet 05/04/19 06/27/19 Unknown Rx hydrOXYzine PAMOATE [Vistaril] 150 mg PO QHS 06/27/19 06/27/19 Unknown History ED Review of Systems ROS: Stated complaint: MH EVALUATION Other details as noted in HPI Comment: Unobtainable due to pts medical conditions <RICH MILLER Melani - Last Filed: 06/27/19 03:22> ROS: Stated complaint: MH EVALUATION Other details as noted in HPI <ADRI CLARK - Last Filed: 06/28/19 13:17> Physical Exam - Physical Exam Vital Signs: Vital Signs 06/27/19 02:10 Temperature 98.5 F Pulse Rate 71 Respiratory 20 Rate Blood Pressure 171/100 O2 Sat by Pulse 97 Oximetry Physical Exam: GENERAL: The patient is well-developed well-nourished male lying on stretcher postictal. [] HEENT: Normocephalic. Atraumatic. Extraocular motions are intact. Patient has moist mucous membranes. NECK: Supple. Trachea midline CHEST/LUNGS: Clear to auscultation. There is no respiratory distress noted. HEART/CARDIOVASCULAR: Regular. There is no tachycardia. There is no gallop rub or murmur. ABDOMEN: Abdomen is soft, nontender. Patient has normal bowel sounds. There is no abdominal distention. SKIN: There is no rash. There is no edema. There is no diaphoresis. NEURO: The patient is currently postictal period just prior to seizure the patient was awake and alert with normal speech MUSCULOSKELETAL: There is no evidence of acute injury. <MICHELA MILLERKE Melani - Last Filed: 06/27/19 03:22> - Physical Exam Vital Signs: Vital Signs 06/27/19 06/27/19 06/27/19 02:10 02:26 03:59 Temperature 98.2 F 98.2 F Pulse Rate 58 L 67 Respiratory 18 18 19 Rate Blood Pressure 171/100 118/72 Blood Pressure 118/72 98/62 [Right] O2 Sat by Pulse 96 96 Oximetry 06/27/19 06/27/19 06/27/19 04:37 05:40 06:38 Temperature Pulse Rate 58 L 49 L 44 L Respiratory 20 18 12 Rate Blood Pressure Blood Pressure 104/69 120/81 123/79 [Right] O2 Sat by Pulse 98 100 98 Oximetry 06/27/19 06/27/19 06/27/19 12:34 12:46 13:00 Temperature Pulse Rate 41 L 50 L 44 L Respiratory 16 16 16 Rate Blood Pressure 112/62 95/58 101/65 Blood Pressure [Right] O2 Sat by Pulse Oximetry 06/27/19 06/27/19 06/27/19 13:16 13:30 13:46 Temperature Pulse Rate 73 51 L 73 Respiratory 13 13 17 Rate Blood Pressure 110/78 137/58 107/58 Blood Pressure [Right] O2 Sat by Pulse Oximetry 06/27/19 06/27/19 06/27/19 14:00 14:16 14:30 Temperature Pulse Rate 47 L 48 L 64 Respiratory 22 18 19 Rate Blood Pressure 102/53 101/46 93/46 Blood Pressure [Right] O2 Sat by Pulse 98 100 99 Oximetry 06/27/19 06/27/19 06/27/19 14:45 15:00 15:10 Temperature Pulse Rate 51 L 51 L 47 L Respiratory 20 21 18 Rate Blood Pressure 90/46 Blood Pressure 113/65 [Right] O2 Sat by Pulse 100 100 99 Oximetry 06/27/19 06/27/19 06/27/19 15:16 15:30 15:46 Temperature Pulse Rate 49 L 48 L 44 L Respiratory 18 22 12 Rate Blood Pressure 113/65 113/65 113/65 Blood Pressure [Right] O2 Sat by Pulse 98 99 99 Oximetry 06/27/19 06/27/19 06/27/19 16:00 16:16 16:34 Temperature Pulse Rate 46 L 46 L 44 L Respiratory 21 17 21 Rate Blood Pressure 113/65 113/65 107/65 Blood Pressure [Right] O2 Sat by Pulse 100 99 100 Oximetry 06/27/19 06/27/19 06/27/19 16:46 17:00 17:16 Temperature Pulse Rate 42 L 41 L 42 L Respiratory 17 15 15 Rate Blood Pressure 113/65 113/65 Blood Pressure [Right] O2 Sat by Pulse 99 100 100 Oximetry 06/27/19 06/27/19 06/27/19 17:30 17:46 18:00 Temperature Pulse Rate 49 L 43 L 65 Respiratory 14 20 12 Rate Blood Pressure Blood Pressure [Right] O2 Sat by Pulse 99 99 97 Oximetry 06/27/19 06/27/19 06/27/19 18:16 18:30 20:00 Temperature 97.9 F Pulse Rate 71 55 L 62 Respiratory 21 15 18 Rate Blood Pressure 105/48 119/66 Blood Pressure 93/57 [Right] O2 Sat by Pulse 99 99 Oximetry 06/28/19 06/28/19 02:22 08:00 Temperature 97.9 F 98.3 F Pulse Rate 53 L 56 L Respiratory 19 16 Rate Blood Pressure Blood Pressure 159/81 115/91 [Right] O2 Sat by Pulse 98 99 Oximetry <CLARKADRI - Last Filed: 06/28/19 13:17> ED Course Vital Signs 06/27/19 02:10 Temperature 98.5 F Pulse Rate 71 Respiratory 20 Rate Blood Pressure 171/100 O2 Sat by Pulse 97 Oximetry <LIZETH MILLERMOLIV Polo - Last Filed: 06/27/19 03:22> Vital Signs 06/27/19 06/27/19 06/27/19 02:10 02:26 03:59 Temperature 98.2 F 98.2 F Pulse Rate 58 L 67 Respiratory 18 18 19 Rate Blood Pressure 171/100 118/72 Blood Pressure 118/72 98/62 [Right] O2 Sat by Pulse 96 96 Oximetry 06/27/19 06/27/19 06/27/19 04:37 05:40 06:38 Temperature Pulse Rate 58 L 49 L 44 L Respiratory 20 18 12 Rate Blood Pressure Blood Pressure 104/69 120/81 123/79 [Right] O2 Sat by Pulse 98 100 98 Oximetry 06/27/19 06/27/19 06/27/19 12:34 12:46 13:00 Temperature Pulse Rate 41 L 50 L 44 L Respiratory 16 16 16 Rate Blood Pressure 112/62 95/58 101/65 Blood Pressure [Right] O2 Sat by Pulse Oximetry 06/27/19 06/27/19 06/27/19 13:16 13:30 13:46 Temperature Pulse Rate 73 51 L 73 Respiratory 13 13 17 Rate Blood Pressure 110/78 137/58 107/58 Blood Pressure [Right] O2 Sat by Pulse Oximetry 06/27/19 06/27/19 06/27/19 14:00 14:16 14:30 Temperature Pulse Rate 47 L 48 L 64 Respiratory 22 18 19 Rate Blood Pressure 102/53 101/46 93/46 Blood Pressure [Right] O2 Sat by Pulse 98 100 99 Oximetry 06/27/19 06/27/19 06/27/19 14:45 15:00 15:10 Temperature Pulse Rate 51 L 51 L 47 L Respiratory 20 21 18 Rate Blood Pressure 90/46 Blood Pressure 113/65 [Right] O2 Sat by Pulse 100 100 99 Oximetry 06/27/19 06/27/19 06/27/19 15:16 15:30 15:46 Temperature Pulse Rate 49 L 48 L 44 L Respiratory 18 22 12 Rate Blood Pressure 113/65 113/65 113/65 Blood Pressure [Right] O2 Sat by Pulse 98 99 99 Oximetry 06/27/19 06/27/19 06/27/19 16:00 16:16 16:34 Temperature Pulse Rate 46 L 46 L 44 L Respiratory 21 17 21 Rate Blood Pressure 113/65 113/65 107/65 Blood Pressure [Right] O2 Sat by Pulse 100 99 100 Oximetry 06/27/19 06/27/19 06/27/19 16:46 17:00 17:16 Temperature Pulse Rate 42 L 41 L 42 L Respiratory 17 15 15 Rate Blood Pressure 113/65 113/65 Blood Pressure [Right] O2 Sat by Pulse 99 100 100 Oximetry 06/27/19 06/27/19 06/27/19 17:30 17:46 18:00 Temperature Pulse Rate 49 L 43 L 65 Respiratory 14 20 12 Rate Blood Pressure Blood Pressure [Right] O2 Sat by Pulse 99 99 97 Oximetry 06/27/19 06/27/19 06/27/19 18:16 18:30 20:00 Temperature 97.9 F Pulse Rate 71 55 L 62 Respiratory 21 15 18 Rate Blood Pressure 105/48 119/66 Blood Pressure 93/57 [Right] O2 Sat by Pulse 99 99 Oximetry 06/28/19 06/28/19 02:22 08:00 Temperature 97.9 F 98.3 F Pulse Rate 53 L 56 L Respiratory 19 16 Rate Blood Pressure Blood Pressure 159/81 115/91 [Right] O2 Sat by Pulse 98 99 Oximetry <ADRI CLARK - Last Filed: 06/28/19 13:17> ED Medical Decision Making - Differential Diagnosis schizophrenia, seizure disorder <RICH MILLER - Last Filed: 06/27/19 03:22> - Lab Data Result diagrams: 06/27/19 03:40 06/27/19 03:40 - Medical Decision Making Patient is admitted to the geropsychiatric unit at this time and will be discharged. <ADRI CLARK - Last Filed: 06/28/19 13:17> Critical care attestation.: If time is entered above; I have spent that time in minutes in the direct care of this critically ill patient, excluding procedure time. <RICH MILLER - Last Filed: 06/27/19 03:22> Critical care attestation.: If time is entered above; I have spent that time in minutes in the direct care of this critically ill patient, excluding procedure time. <ADRI CLARK - Last Filed: 06/28/19 13:17> ED Disposition <RICH MILLER - Last Filed: 06/27/19 03:22> Is pt being admited?: No Does the pt Need Aspirin: No Time of Disposition: 13:17 <ADRI CLARK - Last Filed: 06/28/19 13:17> Clinical Impression: Schizophrenia Disposition: DC-01 TO HOME OR SELFCARE Condition: Stable Referrals: [facility] MD HIREN [Primary Care Provider] - 3-5 Days
[2019-06-27] MEDS ORDERED: BENADRYL ONE (03:31)
[2019-06-27] MEDS ORDERED: HALDOL ONE (03:31)
[2019-06-27 03:51] LABS: Basophils # (Auto) 0.1 K/mm3 (0.0-0.1); Eosinophils # (Auto) 0.1 K/mm3 (0.0-0.4); Eosinophils % (Auto) 1.3 % (0.0-4.3); Hematocrit 42.2 % (35.5-45.6); Hemoglobin 13.6 gm/dl (11.8-15.2); Lymphocytes # (Auto) 3.1 K/mm3 (1.2-5.4); Lymphocytes % (Auto) 44.2 % (13.4-35.0); Mean Corpuscular HGB Conc 32 % (32-34); Mean Corpuscular Volume 88 fl (84-94); Monocytes # (Auto) 0.5 K/mm3 (0.0-0.8); Monocytes % (Auto) 6.6 % (0.0-7.3); Platelet Count 398 K/mm3 (140-440); Red Blood Count 4.78 M/mm3 (3.65-5.03); Red Cell Distribution Width 16.1 % (13.2-15.2)
[2019-06-27 04:28] LABS: BUN/Creatinine Ratio 11; Blood Urea Nitrogen 12 mg/dL (9-20); Hemolysis Index 14
--- NOTE | 2019-06-27 10:37 | Cat Scan Report ---
CT head/brain wo con INDICATION: seizure with prolonged post-ictal state. TECHNIQUE: All CT scans at this location are performed using CT dose reduction for ALARA by means of automated e xposure control. COMPARISON: 05/02/2019 FINDINGS: Visualized paranasal and mastoid sinuses are clear. Mild cortical involution but no mass, hemorrhage or other acute abnormality. IMPRESSION: 1. No acute abnormalities and no change in the 7 week interval. Signer Name: Silverio Guzman MD Signed: 06/27/2019 10:32 AM Workstation Name: [id number]
--- NOTE | 2019-06-27 18:08 | Consultation ---
History of Present Illness - Reason for Consult Consult date: 06/27/19 Reason for consult: psychiatric evaluation - Chief Complaint Chief complaint: unintelligible speech - History of Present Psychiatric Illness Mr. Gottlieb is a 69-year-old male presenting with a chief complaint of schizophrenia. Per the record, [The patient was brought in by his daughter states that the patient has been off his medication for his schizophrenia and bipolar disorder. No further history was obtained. During the interview with the patient he appeared jovial. Mid sentence and had a generalized tonic-clonic seizure lasting approximately 30 seconds and then was postictal.] The patient has a history of seizure disorder and takes Keppra. He is currently on telemetry. He responded to his name and uncovered his head. His speech is uninte lligible. history of acute metabolic encephalopathy with elevated ammonia of 223 05/02/2019--see consult note for that date Mental Status Exam - Exam Narrative exam: unable to assess Assessment and Plan Assessment and plan: Impression: schizophrenia by history unable to assess mental status speech is unintelligible. witnessed seizure activity history of acute metabolic encephalopathy with elevated ammonia 05/02/2019--see consult note for that date recommendation: continue medical treatment Psych will monitor mental status daily hold meds due to mental status dispo: will determine once medically cleared will staff with Dr. Chan Medications and Allergies Allergies Allergy/AdvReac Type Severity Reaction Status Date / Time No Known Allergies Allergy Unverified 10/28/18 06:00 Home Medications Medication Instructions Recorded Confirmed Last Taken Type Mirtazapine [Remeron] 30 mg PO QHS #30 tablet 11/08/17 06/27/19 Unknown Rx risperiDONE [RisperiDONE] 3 mg PO QHS #30 tablet 11/08/17 06/27/19 Unknown Rx levETIRAcetam [Keppra TAB] 750 mg PO BID #60 tablet 05/04/19 06/27/19 Unknown Rx hydrOXYzine PAMOATE [Vistaril] 150 mg PO QHS 06/27/19 06/27/19 Unknown History Active Meds: Active Medications Diphenhydramine HCl (Benadryl) 50 mg IM Q6H PRN PRN Reason: Agitation Last Admin: 06/27/19 03:42 Dose: 50 mg Documented by: Haloperidol Lactate (Haldol) 10 mg IM Q8H PRN PRN Reason: Agitation Last Admin: 06/27/19 03:42 Dose: 10 mg Documented by: Mental Status Exam - Vital signs Last Vital Signs Temp 98.2 F 06/27/19 02:26 Pulse 44 L 06/27/19 16:34 Resp 21 06/27/19 16:34 BP 107/65 06/27/19 16:34 Pulse Ox 100 06/27/19 16:34 Results Result Diagrams: 06/27/19 03:40 06/27/19 03:40 Abnormal lab results 06/27/19 06/27/19 06/27/19 Range/Units 03:40 03:40 03:40 RDW 16.1 H (13.2-15.2) % Lymph % (Auto) 44.2 H (13.4-35.0) % Baso % (Auto) 2.0 H (0.0-1.8) % Potassium 3.4 L (3.6-5.0) mmol/L Carbon Dioxide 14 L (22-30) mmol/L Glucose 110 H (75-100) mg/dL Salicylates < 0.3 L (2.8-20.0) mg/dL Acetaminophen (10.0-30.0) ug/mL 06/27/19 Range/Units 03:40 RDW (13.2-15.2) % Lymph % (Auto) (13.4-35.0) % Baso % (Auto) (0.0-1.8) % Potassium (3.6-5.0) mmol/L Carbon Dioxide (22-30) mmol/L Glucose (75-100) mg/dL Salicylates (2.8-20.0) mg/dL Acetaminophen < 5.0 L (10.0-30.0) ug/mL All other labs normal.
[2019-06-27 18:37] LABS: Bilirubin,Urine NEG (Negative); Blood,Urine NEG (Negative); Color,Urine Yellow (Yellow); Mucus,Urine FEW /HPF; Protein,Urine <15 mg/dL mg/dL (Negative)
[2019-06-27 18:47] LABS: Amphetamine Screen,Urine PRESUMPTIVE NEGATIVE; Benzodiazepines Screen,Urine PRESUMPTIVE NEGATIVE; Cannabinoid Screen,Urine PRESUMPTIVE NEGATIVE; Cocaine Screen,Urine PRESUMPTIVE NEGATIVE; Methadone Screen,Urine PRESUMPTIVE NEGATIVE; Opiate Screen,Urine PRESUMPTIVE NEGATIVE
[2019-06-27 19:28] LABS: Alanine Aminotransferase 24 units/L (7-56); Albumin 4.2 g/dL (3.9-5)
[2019-06-27 19:42] LABS: Bilirubin,Direct < 0.2 mg/dL (0-0.2)
[2019-06-28] MEDS ORDERED: KEPPRA PO SCH (10:00)
[2019-06-28 13:33] VITALS: BP 111/50
== END 2019-06-28 13:33 | disposition home or self-care (01) ==
LOC: ED 02:06
DX: F20.9 Schizophrenia, unspecified (principal); F31.9 Bipolar disorder, unspecified; I10 Essential (primary) hypertension; J45.909 Unspecified asthma, uncomplicated; I25.2 Old myocardial infarction; F14.10 Cocaine abuse, uncomplicated; F17.200 Nicotine dependence, unspecified, uncomplicated
CPT/HCPCS: 36415; 70450; 80048; 80076; 80307; 81001; 82140; 83735; 85025; 96365; 96372; 96375; 99285; J1200; J1630; J1953; J2060; 80320; 90472; G0480

== ENCOUNTER 2019-06-28 11:48 | Inpatient (IN) | payer MEDICARE ==
[2019-06-28] MEDS ORDERED: HALDOL IM PRN (12:13)
[2019-06-28] MEDS ORDERED: ATIVAN IM PRN (12:14)
[2019-06-28 15:21] LABS: Chol/HDL Ratio 1.7 %
[2019-06-28] MEDS: HABITROL TD SCH (18:13)
[2019-06-28] MEDS: VISTARIL PO SCH (21:39)
[2019-06-28] MEDS: KEPPRA PO SCH (21:39)
[2019-06-28] MEDS: RisperDAL PO SCH (21:40)
[2019-06-28] MEDS: REMERON PO SCH (21:40)
[2019-06-28] MEDS ORDERED: NON-FORMULARY (Levetiracetam [Keppra Tab] 750 MG) PO SCH (22:00)
[2019-06-29] MEDS: KEPPRA PO SCH ×2 (11:54→21:20)
[2019-06-29] MEDS: HABITROL TD SCH (11:55)
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
[2019-06-29] MEDS: REMERON PO SCH (21:20)
[2019-06-29] MEDS: RisperDAL PO SCH (21:20)
[2019-06-29] MEDS: VISTARIL PO SCH (21:21)
--- NOTE | 2019-06-30 09:23 | Progress Note ---
Subjective Date of service: 06/30/19 Principal diagnosis: Schizophrenia Subjective Comment: The patient is psychotic, paranoid, disorganized and unable to care for himself. He is compliant with medications and denies side effects. He denies SI/HI/AVH MSE Orientation: place, person Affect: agitated Mood: congruent with affect Thought content: paranoia Thought Process: Disorganized Perceptions: none Speech: incoherent Concentration: focused Motor activity: agitated Level of consciousness: alert Memory: Intact Interaction: cooperative Objective - Criteria for Continued Treatment Criteria for Continued Treatment: Improving Level of Functioning, Confronting Denial of Illness, Improving Emotional/Socia - Objective Observation Participation Level: Moderate Assessment and Plan - Patient Problems (1) Schizophrenia Current Visit: No Status: Acute Plan to address problem: Patient will be admitted for inpatient psychiatric evaluation, medication adjustment and close monitoring The patient's behavior, mood, sleep and appetite will be closely monitored. Patient will be enrolled in individual and group therapeutic sessions and encouraged to attend. Patient will be provided with a safe and structured environment. Patient's physical health needs will be addressed by the Hospitalist. Social Assessment will be completed and the Rn Psychiatric will work with patient and family to ensure a suitable and safe disposition Medication adjustment will be made as clinically indicated The patient agreed on the treatment plan, understood the risk, benefit, alternative treatment, potential consequence of no treatment, and gave informed consent. Medications & Allergies - Medications Allergies/Adverse Reactions: Allergies No Known Allergies Allergy (Unverified 10/28/18 06:00) Home Medications: Home Medications Medication Instructions Recorded Confirmed Last Taken Type Mirtazapine [Remeron] 30 mg PO QHS #30 tablet 11/08/17 06/28/19 Unknown Rx risperiDONE [RisperiDONE] 3 mg PO QHS #30 tablet 11/08/17 06/28/19 Unknown Rx levETIRAcetam [Keppra TAB] 750 mg PO BID #60 tablet 05/04/19 06/28/19 Unknown Rx hydrOXYzine PAMOATE [Vistaril] 150 mg PO QHS 06/27/19 06/28/19 Unknown History Active Medications: Generic Name Dose Route Start Last Admin Trade Name Freq PRN Reason Stop Dose Admin Haloperidol Lactate 5 mg 06/28/19 12:13 Haldol IM Q6H PRN Agitation Hydroxyzine Pamoate 50 mg 06/28/19 22:00 06/29/19 21:21 Vistaril PO 50 mg QHS CHEVY Administration Levetiracetam 750 mg 06/28/19 22:00 06/29/19 21:20 Keppra PO 750 mg BID CHEVY Administration Lorazepam 2 mg 06/28/19 12:14 Ativan IM Q6H PRN Agitation Mirtazapine 30 mg 06/28/19 22:00 06/29/19 21:20 Remeron PO 30 mg QHS CHEVY Administration Nicotine 7 mg 06/28/19 18:00 06/29/19 11:55 Habitrol TD 7 mg QDAY CHEVY Administration Risperidone 3 mg 06/28/19 22:00 06/29/19 21:20 Risperdal PO 3 mg QHS CHEVY Administration
[2019-06-30] MEDS: KEPPRA PO SCH ×2 (10:05→22:01)
[2019-06-30] MEDS: HABITROL TD SCH (10:06)
[2019-06-30] MEDS: VISTARIL PO SCH (22:02)
[2019-06-30] MEDS: REMERON PO SCH (22:02)
[2019-06-30] MEDS: RisperDAL PO SCH (22:02)
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
[2019-07-01] MEDS: HABITROL TD SCH (09:36)
[2019-07-01] MEDS: KEPPRA PO SCH ×2 (09:36→21:50)
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
[2019-07-01] MEDS: RisperDAL PO SCH (21:50)
[2019-07-01] MEDS: REMERON PO SCH (21:50)
[2019-07-01] MEDS: VISTARIL PO SCH (21:50)
--- NOTE | 2019-07-02 09:03 | Progress Note ---
Subjective Date of service: 07/02/19 Principal diagnosis: Schizophrenia Subjective Comment: The patient wants Tylenol for his shoulder. He continues to be psychotic, paranoid, disorganized and unable to care for himself. He is compliant with medications and denies side effects. He denies SI/HI/AVH MSE Orientation: place, person Affect: agitated Mood: congruent with affect Thought content: paranoia Thought Process: Disorganized Perceptions: none Speech: coherent Concentration: focused Motor activity: Normal Level of consciousness: alert Memory: Intact Interaction: cooperative Objective - Criteria for Continued Treatment Criteria for Continued Treatment: Improving Level of Functioning, Stablizing Level of Functioning, Improving Emotional/Socia - Objective Observation Participation Level: Moderate Assessment and Plan - Patient Problems (1) Schizophrenia Current Visit: No Status: Acute Plan to address problem: Patient will be admitted for inpatient psychiatric evaluation, medication adjustment and close monitoring The patient's behavior, mood, sleep and appetite will be closely monitored. Patient will be enrolled in individual and group therapeutic sessions and encouraged to attend. Patient will be provided with a safe and structured environment. Patient's physical health needs will be addressed by the Hospitalist. Social Assessment will be completed and the Recreation Therapy Aide will work with patient and family to ensure a suitable and safe disposition Medication adjustment will be made as clinically indicated Will continue Risperidone 2 mg bid The patient agreed on the treatment plan, understood the risk, benefit, alternative treatment, potential consequence of no treatment, and gave informed consent. Medications & Allergies - Medications Allergies/Adverse Reactions: Allergies No Known Allergies Allergy (Unverified 10/28/18 06:00) Home Medications: Home Medications Medication Instructions Recorded Confirmed Last Taken Type Mirtazapine [Remeron] 30 mg PO QHS #30 tablet 11/08/17 06/28/19 Unknown Rx risperiDONE [RisperiDONE] 3 mg PO QHS #30 tablet 11/08/17 06/28/19 Unknown Rx levETIRAcetam [Keppra TAB] 750 mg PO BID #60 tablet 05/04/19 06/28/19 Unknown Rx hydrOXYzine PAMOATE [Vistaril] 150 mg PO QHS 06/27/19 06/28/19 Unknown History Active Medications: Generic Name Dose Route Start Last Admin Trade Name Freq PRN Reason Stop Dose Admin Acetaminophen 650 mg 07/02/19 09:00 Tylenol PO Q6H PRN Pain, Mild (1-3) Haloperidol Lactate 5 mg 06/28/19 12:13 Haldol IM Q6H PRN Agitation Hydroxyzine Pamoate 50 mg 06/28/19 22:00 07/01/19 21:50 Vistaril PO 50 mg QHS CHEVY Administration Levetiracetam 750 mg 06/28/19 22:00 07/01/19 21:50 Keppra PO 750 mg BID CHEVY Administration Lorazepam 2 mg 06/28/19 12:14 Ativan IM Q6H PRN Agitation Mirtazapine 30 mg 06/28/19 22:00 07/01/19 21:50 Remeron PO 30 mg QHS CHEVY Administration Nicotine 7 mg 06/28/19 18:00 07/01/19 09:36 Habitrol TD 7 mg QDAY CHEVY Administration Risperidone 3 mg 06/28/19 22:00 07/01/19 21:50 Risperdal PO 3 mg QHS CHEVY Administration
[2019-07-02] MEDS: TYLENOL PO PRN (09:20)
[2019-07-02] MEDS: KEPPRA PO SCH ×2 (09:20→21:18)
[2019-07-02] MEDS: HABITROL TD SCH (09:21)
[2019-07-02] MEDS: RisperDAL PO SCH ×2 (10:33→21:19)
[2019-07-02] MEDS: REMERON PO SCH (21:18)
[2019-07-02] MEDS: VISTARIL PO SCH (21:19)
[2019-07-03] MEDS: RisperDAL PO SCH ×2 (09:02→21:08)
[2019-07-03] MEDS: KEPPRA PO SCH ×2 (09:02→21:08)
[2019-07-03] MEDS: HABITROL TD SCH (09:02)
[2019-07-03] MEDS: REMERON PO SCH (21:07)
[2019-07-03] MEDS: VISTARIL PO SCH (21:07)
[2019-07-04] MEDS: KEPPRA PO SCH ×2 (10:22→21:06)
[2019-07-04] MEDS: HABITROL TD SCH (10:23)
[2019-07-04] MEDS: RisperDAL PO SCH ×2 (10:23→21:07)
[2019-07-04] MEDS: REMERON PO SCH (21:06)
[2019-07-04] MEDS: VISTARIL PO SCH (21:07)
[2019-07-04] MEDS: TYLENOL PO PRN (23:49)
[2019-07-05] MEDS: ATIVAN PO PRN ×2 (05:02→21:10)
[2019-07-05] MEDS: HALDOL PO PRN ×2 (05:02→21:09)
[2019-07-05] MEDS ORDERED: ATIVAN ONE (05:04)
[2019-07-05] MEDS: TYLENOL PO PRN (05:35)
--- NOTE | 2019-07-05 07:59 | Progress Note ---
Subjective Date of service: 07/03/19 Principal diagnosis: Schizophrenia Subjective Comment: The patient is improving. He is still psychotic, paranoid but less disorganized and more able to care for himself. He is compliant with medications and denies side effects. He denies SI/HI/AVH MSE Orientation: place, person Affect: agitated Mood: congruent with affect Thought content: paranoia Thought Process: Disorganized Perceptions: none Speech: coherent Concentration: focused Motor activity: Normal Level of consciousness: alert Memory: Intact Interaction: cooperative Objective - Criteria for Continued Treatment Criteria for Continued Treatment: Improving Level of Functioning, Stablizing Level of Functioning, Improving Emotional/Socia - Objective Observation Participation Level: Moderate Assessment and Plan - Patient Problems (1) Schizophrenia Current Visit: No Status: Acute Plan to address problem: Patient will be admitted for inpatient psychiatric evaluation, medication adjustment and close monitoring The patient's behavior, mood, sleep and appetite will be closely monitored. Patient will be enrolled in individual and group therapeutic sessions and encouraged to attend. Patient will be provided with a safe and structured environment. Patient's physical health needs will be addressed by the Hospitalist. Social Assessment will be completed and the Battery Wrecker Operator will work with patient and family to ensure a suitable and safe disposition Medication adjustment will be made as clinically indicated Will continue Risperidone 2 mg bid The patient agreed on the treatment plan, understood the risk, benefit, alternative treatment, potential consequence of no treatment, and gave informed consent. Medications & Allergies - Medications Allergies/Adverse Reactions: Allergies No Known Allergies Allergy (Unverified 10/28/18 06:00) Home Medications: Home Medications Medication Instructions Recorded Confirmed Last Taken Type Mirtazapine [Remeron] 30 mg PO QHS #30 tablet 11/08/17 06/28/19 Unknown Rx risperiDONE [RisperiDONE] 3 mg PO QHS #30 tablet 11/08/17 06/28/19 Unknown Rx levETIRAcetam [Keppra TAB] 750 mg PO BID #60 tablet 05/04/19 06/28/19 Unknown Rx hydrOXYzine PAMOATE [Vistaril] 150 mg PO QHS 06/27/19 06/28/19 Unknown History Active Medications: Generic Name Dose Route Start Last Admin Trade Name Freq PRN Reason Stop Dose Admin Acetaminophen 650 mg 07/02/19 09:00 07/05/19 05:35 Tylenol PO 650 mg Q6H PRN Administration Pain, Mild (1-3) Haloperidol 5 mg 07/05/19 04:45 07/05/19 05:02 Haldol PO 5 mg Q6H PRN Administration Agitation Haloperidol Lactate 5 mg 06/28/19 12:13 Haldol IM Q6H PRN Agitation Hydroxyzine Pamoate 50 mg 06/28/19 22:00 07/04/19 21:07 Vistaril PO 50 mg QHS CHEVY Administration Levetiracetam 750 mg 06/28/19 22:00 07/04/19 21:06 Keppra PO 750 mg BID CHEVY Administration Lorazepam 2 mg 06/28/19 12:14 Ativan IM Q6H PRN Agitation Lorazepam 2 mg 07/05/19 04:46 07/05/19 05:02 Ativan PO 2 mg Q6H PRN Administration Agitation Mirtazapine 30 mg 06/28/19 22:00 07/04/19 21:06 Remeron PO 30 mg QHS CHEVY Administration Nicotine 7 mg 06/28/19 18:00 07/04/19 10:23 Habitrol TD 7 mg QDAY CHEVY Administration Risperidone 2 mg 07/02/19 10:00 07/04/19 21:07 Risperdal PO 2 mg BID CHEVY Administration
--- NOTE | 2019-07-05 08:03 | Progress Note ---
Subjective Date of service: 07/04/19 Principal diagnosis: Schizophrenia Subjective Comment: The patient continues to improve. He is still psychotic, paranoid but calm, pleasant, interactive, less disorganized and more able to care for himself. He is compliant with medications and denies side effects. He denies SI/HI/AVH MSE Orientation: place, person Affect: Calm Mood: congruent with affect Thought content: paranoia Thought Process: Linear Perceptions: none Speech: coherent Concentration: focused Motor activity: Normal Level of consciousness: alert Memory: Intact Interaction: cooperative Objective - Criteria for Continued Treatment Criteria for Continued Treatment: Improving Level of Functioning, Stablizing Level of Functioning, Improving Emotional/Socia - Objective Observation Participation Level: Moderate Assessment and Plan - Patient Problems (1) Schizophrenia Current Visit: No Status: Acute Plan to address problem: Patient will be admitted for inpatient psychiatric evaluation, medication adjustment and close monitoring The patient's behavior, mood, sleep and appetite will be closely monitored. Patient will be enrolled in individual and group therapeutic sessions and encouraged to attend. Patient will be provided with a safe and structured environment. Patient's physical health needs will be addressed by the Hospitalist. Social Assessment will be completed and the Insurance Verification Representative will work with patient and family to ensure a suitable and safe disposition Medication adjustment will be made as clinically indicated Will continue Risperidone 2 mg bid The patient agreed on the treatment plan, understood the risk, benefit, alternative treatment, potential consequence of no treatment, and gave informed consent.
[2019-07-05] MEDS: HABITROL TD SCH (12:14)
[2019-07-05] MEDS: KEPPRA PO SCH ×2 (12:14→21:08)
[2019-07-05] MEDS: RisperDAL PO SCH ×2 (12:17→21:09)
[2019-07-05] MEDS: VISTARIL PO SCH (21:09)
[2019-07-05] MEDS: REMERON PO SCH (21:09)
--- NOTE | 2019-07-06 01:19 | Progress Note ---
Subjective Date of service: 07/05/19 Principal diagnosis: Schizophrenia Subjective Comment: The patient is compliant with medications, calm and pleasant. He is less disorganized and more able to care for himself. Unkempt and wearing multiple layers of clothes this morning. Eats and sleeps well. He is compliant with medications and denies side effects. He denies SI/HI/AVH MSE Orientation: place, person Affect: Calm Mood: congruent with affect Thought content: paranoia Thought Process: Linear Perceptions: none Speech: coherent Concentration: focused Motor activity: Normal Level of consciousness: alert Memory: Intact Interaction: cooperative Objective - Criteria for Continued Treatment Criteria for Continued Treatment: Improving Level of Functioning, Reducing Isolative Behaviors, Stablizing Level of Functioning, Improving Emotional/Socia, Decreasing Frequency of Hospitalization - Objective Observation Participation Level: Moderate Assessment and Plan - Patient Problems (1) Schizophrenia Current Visit: No Status: Acute Plan to address problem: Patient will be admitted for inpatient psychiatric evaluation, medication adjustment and close monitoring The patient's behavior, mood, sleep and appetite will be closely monitored. Patient will be enrolled in individual and group therapeutic sessions and encouraged to attend. Patient will be provided with a safe and structured environment. Patient's physical health needs will be addressed by the Hospitalist. Social Assessment will be completed and the Cable Layer will work with patient and family to ensure a suitable and safe disposition Medication adjustment will be made as clinically indicated Will continue Risperidone 2 mg bid The patient agreed on the treatment plan, understood the risk, benefit, alternative treatment, potential consequence of no treatment, and gave informed consent. Medications & Allergies - Medications Allergies/Adverse Reactions: Allergies No Known Allergies Allergy (Unverified 10/28/18 06:00) Home Medications: Home Medications Medication Instructions Recorded Confirmed Last Taken Type Mirtazapine [Remeron] 30 mg PO QHS #30 tablet 11/08/17 06/28/19 Unknown Rx risperiDONE [RisperiDONE] 3 mg PO QHS #30 tablet 11/08/17 06/28/19 Unknown Rx levETIRAcetam [Keppra TAB] 750 mg PO BID #60 tablet 05/04/19 06/28/19 Unknown Rx hydrOXYzine PAMOATE [Vistaril] 150 mg PO QHS 06/27/19 06/28/19 Unknown History Active Medications: Generic Name Dose Route Start Last Admin Trade Name Freq PRN Reason Stop Dose Admin Acetaminophen 650 mg 07/02/19 09:00 07/05/19 05:35 Tylenol PO 650 mg Q6H PRN Administration Pain, Mild (1-3) Haloperidol 5 mg 07/05/19 04:45 07/05/19 21:09 Haldol PO 5 mg Q6H PRN Administration Agitation Haloperidol Lactate 5 mg 06/28/19 12:13 Haldol IM Q6H PRN Agitation Hydroxyzine Pamoate 50 mg 06/28/19 22:00 07/05/19 21:09 Vistaril PO 50 mg QHS CHEVY Administration Levetiracetam 750 mg 06/28/19 22:00 07/05/19 21:08 Keppra PO 750 mg BID CHEVY Administration Lorazepam 2 mg 06/28/19 12:14 Ativan IM Q6H PRN Agitation Lorazepam 2 mg 07/05/19 04:46 07/05/19 21:10 Ativan PO 2 mg Q6H PRN Administration Agitation Mirtazapine 30 mg 06/28/19 22:00 07/05/19 21:09 Remeron PO 30 mg QHS CHEVY Administration Nicotine 7 mg 06/28/19 18:00 07/05/19 12:14 Habitrol TD 7 mg QDAY CHEVY Administration Risperidone 2 mg 07/02/19 10:00 07/05/19 21:09 Risperdal PO 2 mg BID CHEVY Administration
[2019-07-06 03:47] VITALS: BP 126/55
--- NOTE | 2019-07-06 09:29 | Discharge Summary ---
Providers - Providers Date of Admission: 06/28/19 11:54 Date of discharge: 07/06/19 Attending physician: ELIANA GALVEZ MD 06/30/19 04:33 Consult Geriatric-Psych [CONS] Routine Consulting Provider: DARLING MORROW Reason For Exam: H&P Medical Mgmt [facility] Reason for admission: non-compliance, disorganized behavior, inability to care for self and paran Condition: Good Disposition: DC-01 TO HOME OR SELFCARE Allergies/Adverse Reactions: Allergies No Known Allergies Allergy (Unverified 10/28/18 06:00) Vital Signs: Last Vital Signs Temp 97.8 F 07/05/19 20:00 Pulse 76 07/05/19 20:00 Resp 18 07/05/19 20:00 BP 126/55 07/05/19 20:00 Pulse Ox 99 07/05/19 20:00 Last Lab: Laboratory Last Values POC Glucose 97 (70-105) 07/02/19 16:41 4.6 % (4-6) 06/28/19 14:50 Triglycerides 75 mg/dL (2-149) 06/28/19 14:50 Cholesterol 126 mg/dL (50-199) 06/28/19 14:50 54 mg/dL (50-130) 06/28/19 14:50 74 mg/dL (40-59) H 06/28/19 14:50 1.70 % 06/28/19 14:50 - Discharge Diagnoses (1) Schizophrenia Status: Acute Core Measure Documentation - Palliative Care Palliative Care/ Comfort Measures: Not Applicable Exam - Constitutional Vitals: Temp Pulse Resp BP Pulse Ox 97.8 F 76 18 126/55 99 07/05/19 20:00 07/05/19 20:00 07/05/19 20:00 07/05/19 20:00 07/05/19 20:00 Plan Care Plan Goals: Stay healthy and symptom free Plan of Treatment: Take medications as prescribed and attend follow up appointments Health Concerns: None Assessment: Paranoid schizophrenia Follow up with: NURA MENDIETALANCASTER MD HIREN [Primary Care Provider] - 7 Days Prescriptions: Mirtazapine [Remeron 30mg TAB] 30 mg PO QHS #30 tablet hydrOXYzine PAMOATE [Vistaril] 150 mg PO QHS #90 capsule levETIRAcetam [Keppra TAB] 750 mg PO BID #60 tablet risperiDONE [RisperDAL] 2 mg PO BID #120 tablet
[2019-07-06] MEDS: HABITROL TD SCH (09:43)
[2019-07-06] MEDS: KEPPRA PO SCH (09:43)
[2019-07-06] MEDS: RisperDAL PO SCH (09:43)
== END 2019-07-06 11:23 | disposition home or self-care (01) | DRG 885 ==
LOC: UNDOADMIN 11:48 → 3A 11:48 → 5A 11:54
PROVIDERS: ADMIT Psychiatry & Neurology Psychiatry; ATTEND Psychiatry & Neurology Psychiatry
DX: F20.0 Paranoid schizophrenia (principal); F12.188 Cannabis abuse with other cannabis-induced disorder; F14.10 Cocaine abuse, uncomplicated; I10 Essential (primary) hypertension; F31.9 Bipolar disorder, unspecified; G40.909 Epilepsy, unspecified, not intractable, without status epilepticus; Z91.19 Patient's noncompliance with other medical treatment and regimen; Z86.73 Personal history of transient ischemic attack (TIA), and cerebral infarction without residual deficits; Z79.899 Other long term (current) drug therapy; Z71.51 Drug abuse counseling and surveillance of drug abuser; J45.909 Unspecified asthma, uncomplicated
CPT/HCPCS: 36415; 80061; 82962; 83036; G0378; Q0177